=== PATIENT | female | born 1975 | race Caucasian/White ===

== ENCOUNTER 2016-08-31 20:14 | Emergency (ER) | payer SELFPAY ==
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
[2016-08-31 22:42] VITALS: BP 180/110
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
== END 2016-08-31 22:41 | disposition home or self-care (01) ==
LOC: MW.ED 20:14
DX: S43.102A Unspecified dislocation of left acromioclavicular joint, initial encounter (principal); I10 Essential (primary) hypertension; F41.9 Anxiety disorder, unspecified; F32.9 Major depressive disorder, single episode, unspecified; F17.210 Nicotine dependence, cigarettes, uncomplicated; Z98.890 Other specified postprocedural states; V89.2XXA Person injured in unspecified motor-vehicle accident, traffic, initial encounter
CPT/HCPCS: 72125; 72125-26; 73030-26-LT; 73030-LT; 99284; 99284-25; A4566